=== PATIENT | female | born 1950 | race Caucasian/White ===

== ENCOUNTER 2021-03-17 10:29 | Emergency (ER) | payer OTHER ==
[2021-03-17] MEDS ORDERED: HYDROcodone-ACET 5/325MG TAB PO ONE (11:30)
[2021-03-17] MEDS: ONDANSETRON HCL 4 MG/2 ML VIAL IV ONE ×2 (13:00→15:32)
[2021-03-17] MEDS: MORPHINE SULFATE 4 MG/ML SYR/VIAL IV ONE ×2 (13:00→15:32)
[2021-03-17] MEDS ORDERED: SODIUM CHLORIDE 0.9% 1,000 ML IV ONE (13:00)
[2021-03-17 13:29] LABS: Basophils # (auto) 0 10 ^3/uL (0-0.2); Basophils % (auto) 0.4 % (0.0-2.0); Eosinophils # (auto) 0 10 ^3/uL (0-0.8); Eosinophils % (auto) 0.4 % (0.0-7.0); Hematocrit 34.8 % (36.0-46.0); Hemoglobin 11.7 g/dL (12.2-16.2); Lymphocytes # (auto) 0.6 10 ^3/uL (0.4-5.4); Lymphocytes % (auto) 11.6 % (10.0-50.0); Mean Corpuscular Hemoglobin 30.8 pg (28.0-32.0); Mean Corpuscular Hgb Conc. 33.6 g/dL (32.0-36.0); Mean Corpuscular Volume 91.5 fL (80.0-100.0); Monocytes # (auto) 0.4 10 ^3/uL (0-1.3); Monocytes % (auto) 7.9 % (0.0-12.0); Neutrophils % (auto) 79.7 % (37.0-80.0); Nucleated Red Blood Cells % 0.1 %; Platelet Count (auto) 122 10^3/uL (140-450)
[2021-03-17 13:44] LABS: Albumin 3.2 g/dL (3.4-5.0); Anion Gap 8 (5-15); Blood Urea Nitrogen 12 mg/dL (7-18); Calcium 8.9 mg/dL (8.5-10.1); Carbon Dioxide 29 mmol/L (21-32); Chloride 105 mmol/L (98-107); Glucose 86 mg/dL (74-106); Potassium 3.7 mmol/L (3.5-5.1); Sodium 142 mmol/L (136-145)
[2021-03-17 13:47] LABS: INR 1.03 (0.9-1.15); Partial Thromboplastin Time 24.5 sec (23.0-31.2)
[2021-03-17 13:49] LABS: Alanine Aminotransferase 39 U/L (13-56); Alkaline Phosphatase 164 U/L (45-117); Aspartate Aminotransferase 50 U/L (15-37); BUN/Creatinine Ratio 20.7; Bilirubin, Total 0.5 mg/dL (0.2-1.0); GFR African American 131 mL/min; GFR Non-African American 109 mL/min; Total Protein 7.5 g/dL (6.4-8.2)
[2021-03-17 15:57] LABS: Urine Bacteria FEW /hpf (None Seen); Urine Blood Negative /uL (Negative); Urine Specific Gravity 1.008 (1.001-1.035); Urine WBC <1 /hpf (0 - 5)
[2021-03-17 17:07] VITALS: BP 130/61
== END 2021-03-17 18:29 | disposition short-term general hospital (02) ==
LOC: ER 10:29 → EDBD 10:29 → ER 18:29
DX: S52.532A Colles' fracture of left radius, initial encounter for closed fracture (principal); S72.002A Fracture of unspecified part of neck of left femur, initial encounter for closed fracture; Z88.0 Allergy status to penicillin; Z88.2 Allergy status to sulfonamides; Z20.822 Contact with and (suspected) exposure to COVID-19; W18.39XA Other fall on same level, initial encounter; Y93.89 Activity, other specified; Y92.89 Other specified places as the place of occurrence of the external cause; Y99.8 Other external cause status
CPT/HCPCS: 29125; 36415; 71045; 72192; 73110; 80053; 81001; 84484; 85025; 85610; 85730; 87426; 96361; 96374; 96375; 99285; J2270; J2405